=== PATIENT | female | born 1975 | race Caucasian/White ===

== ENCOUNTER 2017-11-12 07:05 | Emergency (ER) | payer MEDICAID ==
[~2017-11-12] VITALS: Ht 167.6 cm; Wt 90.0 kg
[2017-11-12] MEDS ORDERED: ESCI10TA10 PO (07:11)
[2017-11-12] MEDS ORDERED: ARIP10TA33 PO (07:12)
[2017-11-12] MEDS ORDERED: METHOCARBAMOL 750 MG TABLET PO ONE (07:30)
[2017-11-12] MEDS ORDERED: KETOROLAC 30 MG/1 ML IM ONE (07:30)
[2017-11-12] MEDS ORDERED: OXYcodone/APAP 5/325MG TABLET PO ONE (07:30)
[2017-11-12] MEDS ORDERED: OXYcodone/APAP 5/325MG TABLET ONE (07:33)
[2017-11-12] MEDS ORDERED: METHOCARBAMOL 750 MG TABLET ONE (07:33)
[2017-11-12] MEDS ORDERED: KETOROLAC 30 MG/1 ML ONE (07:33)
[2017-11-12 09:52] LABS: CLUE CELLS PRESENT (NONE SEEN); WET PREP WBCS MANY (FEW)
[2017-11-12 09:58] LABS: MICROSCOPIC INDICATED
[2017-11-12 09:59] LABS: CULTURE INDICATED? YES
[2017-11-12 10:37] VITALS: BP 132/88
== END 2017-11-12 10:39 | disposition home or self-care (01) ==
LOC: ED 08:27
DX: S39.012A Strain of muscle, fascia and tendon of lower back, initial encounter (principal); N30.90 Cystitis, unspecified without hematuria; N76.0 Acute vaginitis; B96.89 Other specified bacterial agents as the cause of diseases classified elsewhere; F31.9 Bipolar disorder, unspecified; W00.2XXA Other fall from one level to another due to ice and snow, initial encounter; Y93.89 Activity, other specified; Y92.89 Other specified places as the place of occurrence of the external cause; Y99.8 Other external cause status
CPT/HCPCS: 72110; 81001; 87077; 87086; 87210; 87491; 87591; 87808; 96372; 99285; J1885; 87186

== ENCOUNTER 2018-06-28 12:39 | Emergency (ER) | payer MEDICAID ==
[~2018-06-28] VITALS: Ht 167.6 cm; Wt 97.8 kg
[~2018-06-28 12:39] MED LIST: ARIP10TA33 PO; ESCI10TA10 PO
[2018-06-28 12:46] VITALS: BP 168/76
[2018-06-28 13:43] LABS: BASOPHILS # (AUTO) 0.06 x10^3/uL (0-0.1); BASOPHILS % (AUTO) 1 % (0-1); EOSINOPHILS # (AUTO) 0.27 x10^3/uL (0-0.4); EOSINOPHILS % (AUTO) 2 % (1-7); LYMPHOCYTES # (AUTO) 2.19 x10^3/uL (1-3.4); LYMPHOCYTES % (AUTO) 18 % (22-44); MD NO; MEAN CORPUSCULAR HEMOGLOBIN 28.5 pg (27.0-34.8); MEAN CORPUSCULAR VOLUME 83.8 fL (80-100); MEAN PLATELET VOLUME 8.2 fL (7.4-10.4); MONOCYTES % (AUTO) 7 % (2-9); NEUTROPHILS % (AUTO) 73 % (42-75); PLATELET COUNT 410 x10^3/uL (130-400); RED CELL DISTRIBUTION WIDTH 15.1 % (9.6-15.2)
[2018-06-28 13:52] LABS: ALANINE AMINOTRANSFERASE 32 U/L (12-78); ALBUMIN 3.2 g/dL (3.4-5.0); ANION GAP 7 mmol/L (5-15); CALCIUM 8.6 mg/dL (8.5-10.1); CHLORIDE 108 mmol/L (98-107); CREATININE 0.74 mg/dL (0.55-1.02)
[2018-06-28 13:57] LABS: ALKALINE PHOSPHATASE 74 U/L (45-117); BILIRUBIN,TOTAL 0.2 mg/dL (0.2-1.0); TOTAL PROTEIN 7.1 g/dL (6.4-8.2)
[2018-06-28] MEDS ORDERED: HYDROcodone/APAP 5/325 TABLET ONE (14:22)
[2018-06-28] MEDS ORDERED: HYDROcodone/APAP 5/325 TABLET PO ONE (14:30)
[2018-06-28 14:44] LABS: MICROSCOPIC AUTO
[2018-06-28 14:46] LABS: CULTURE INDICATED? YES
== END 2018-06-28 15:54 | disposition home or self-care (01) ==
LOC: ED 15:50
DX: S80.211A Abrasion, right knee, initial encounter (principal); S09.90XA Unspecified injury of head, initial encounter; R21 Rash and other nonspecific skin eruption; N39.0 Urinary tract infection, site not specified; K08.89 Other specified disorders of teeth and supporting structures; G89.29 Other chronic pain; F31.9 Bipolar disorder, unspecified; W18.30XA Fall on same level, unspecified, initial encounter; Y93.89 Activity, other specified; Y92.89 Other specified places as the place of occurrence of the external cause; Y99.8 Other external cause status
CPT/HCPCS: 36415; 70450; 71045; 80053; 81001; 84703; 85025; 87077; 87086; 87186; 93005; 99285